=== PATIENT | male | born 1955 | race Caucasian/White ===

== ENCOUNTER 2019-08-07 18:55 | Emergency (ER) | payer MEDICARE ==
--- OUTSIDE RECORDS SUMMARY | 2019-08-07 18:59 | XMS REPORT | Summary of Care ---
:1955 Author Organization [facility] Address 1 [facility] [address] [place] [address] Care Team Providers Name Role Phone Cole Fiore Primary Care Provider Reason for Visit Reason Comments New Patient Referred by Holly Braswell Thumb Pain Right thumb pain and locking X 1 month. Right hand dominant. 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 Acetaminophen (TYLENOL Take by mouth 0 Active PO) EVERY SIX HOURS. fluticasone (FLONASE) 50 Roosevelt 1 Roosevelt in 1 Bottle 1 10/02/2017 Active MCG/ACT Nasal Suspension nose DAILY. guaiFENesin-codeine Take 10 mL by 240 mL 0 02/15/2019 Active (ROBITUSSIN AC) 100-10 mouth EVERY MG/5ML Oral Solution EIGHT HOURS NEEDED (cough). Max Daily Amount: 30 mL. Hospital, Clinic, or Other Ordered Dose Route Frequency Start Date End Date Status Facility Administered Medication methylPREDNISolone acetate 10 mg IM NOW 06/18/2019 06/18/2019 Ended (DEPO-MEDROL) injection 40 MG/MLIndications: Trigger thumb of right hand documented as of this encounter (statuses as of 06/18/2019) Active Problems Problem Noted Date Right inguinal hernia 04/11/2017 Overview: Added automatically from request for surgery [id number] Gallbladder mass 01/15/2017 Overview: Added automatically from request for surgery [id number] Arthralgia of both knees 04/15/2015 documented as of this encounter (statuses as of 06/18/2019) Immunizations Name Administration Dates Next Due Influenza (IM) Preservative Free 04/30/2017, 03/16/2016 TDAP Vaccine 10/26/2013 documented as of this encounter Social History Tobacco Use Types Packs/Day Years Used Date Never Smoker Smokeless Tobacco: Never Used Alcohol Use Drinks/Week oz/Week Comments Yes 1 Standard drinks or equivalent 1.0 drinks sparingly Sex Assigned at Date Recorded Not on file Job Start Date Occupation Industry Not on file Not on file Not on file Travel History Travel Start Travel End No recent travel history available. documented as of this encounter Last Filed Vital Signs Vital Sign Reading Time Taken Comments Blood Pressure 124/72 06/18/2019 9:47 AM EST Pulse - - Temperature - - Respiratory Rate - - Oxygen Saturation - - Inhaled Oxygen Concentration - - Weight 99.8 kg (220 lb) 06/18/2019 9:47 AM EST Height 180.3 cm (5' 11") 06/18/2019 9:47 AM EST Body Mass Index 30.68 06/18/2019 9:47 AM EST documented in this encounter Progress Notes [place] NP - 06/18/2019 10:00 AM EST HAND SURGERY Name: Rip Thompson : 1955 Date of service: 06/18/2019 Chief Complaint Patient presents with New Patient Referred by Holly Braswell Thumb Pain Right thumb pain and locking X 1 month. Right hand dominant. HPI: Rip Thompson is a 63-y.o. y/o male,without diabetes, Right hand dominant, who presents at the request of Holly Braswell for evaluation of right thumb pain and locking x 1 month. PAST MEDICALHISTORY: He has a past medical history of Adverse effect of anesthesia (12/2016), Gallbladder polyp (12/2016), Gout attack, Right inguinal hernia (12/2016), Seasonal allergies, and Wrist fracture. PAST SURGICAL HISTORY:He has a past surgical history that includes vasectomy ( 1993); pr knee scope,w/lateral release (1992); laparoscopic cholecystectomy (); and herniorrhaphy, inguinal adult (Right, 07/08/2017). MEDICATIONS: Current Outpatient Medications: Acetaminophen (TYLENOL PO), Take by mouth EVERY SIX HOURS., Disp: , Rfl : fluticasone (FLONASE) 50 MCG/ACT Nasal Suspension, Roosevelt 1 Roosevelt in nose DAILY., Disp: 1 Bottle, Rfl: 1 guaiFENesin-codeine (ROBITUSSIN AC) 100-10 MG/5ML Oral Solution, Take 10 mL by mouth EVERY EIGHT HOURS NEEDED (cough). Max Daily Amount: 30 mL., Disp: 240 mL, Rfl: 0 ibuprofen (MOTRIN) 400 MG Oral Tab, Take 400 mg by mouth EVERY SIX HOURS NEEDED for Pain., Disp: , Rfl: ALLERGIES: He has No Known Allergies. SOCIAL HISTORY: He reports that he has never smoked. He has never used smokeless tobacco. He reports current alcohol use of about 1.0 standard drinks of alcohol per week. He reports that he does not use drugs. FAMILY HISTORY: family history includes Allergies in his son; Asthma in his son ; Colon Cancer in hisother and other; Diabetes in his mother; Heart in his father. ROS: Nursing Notes: Cyndi Nathan LPN 06/18/2019 9:51 AM Signed NAME: Rip Thompson : 1955 DATE OF SERVICE: 06/18/2019 CONSTITUTIONAL: negative. HEENT: negative. EYES: negative. RESPIRATORY: negative. CARDIOVASCULAR: negative. GASTROINTESTINAL: negative. GENITOURINARY: negative. INTEGUMENT/BREAST: negative. HEMATOLOGIC/LYMPHATIC: negative. MUSCULOSKELETAL: Negative except right thumb pain and locking NEUROLOGICAL: negative. BEHAVIORAL/PSYCH: negative. ENDOCRINE: negative. ALLERGIC/IMMUNOLOGIC: negative. AUTHOR: Cyndi Nathan LPN 06/18/2019 09:50 I reviewed the above and have made changes as appropriate. Physical Exam: Vitals: BP 124/72 Ht 5' 11" (1.803 m) Wt 220 lb (99.8 kg) BMI 30.68 kg/m2 Gen: NAD, A&Ox3 Extremities: Stability, musculature, motion, and alignment are examined, and palpation is performed.The contralateral side is examined for comparison. hand exam demonstrates well-developed and symmetric upper extremities without obvious deformity. Normal rugal patterns, sweat, turgor, and temperature. Cuticles, nails, nail curvature, and pulp bulk are normal inappearance. Capillary refill is <2 seconds. The small joints of the hand are stablewithout significant subluxation, dislocations, or laxity. Gross alignment is normal. Muscle examination reveals normal muscle bulk withno notable atrophy. Sensation intact to light touch. Active triggering: rt Tenderness at A1 timoteo: rt Mass or nodule: none Full flexion and extension of all fingers unless otherwise noted. Assessment: ICD-9-CM ICD-10-CM 1. Trigger thumb of right hand 727.03 M65.311 REFER TO HAND SURGERY methylPREDNISolone acetate (DEPO-MEDROL) injection 40 MG/ML Plan & Discussion: --cortisone injection for right thumb trigger finger We discussed the basic underlying pathoanatomy of trigger fingers, as well as the treatment options,which primarily consists of cortisone injection or surgery. Splinting may be useful in some cases.Cortisone is helpful in approximately 50-70% of patients with up to 2 or 3 injections. When non- operative measures fail or the patient is either unable or unwilling to undergo an injection, surgical release of the A1 timoteo may be performed, which definitively solves the problem in nearly all cases.This patient is a candidate for injection and would like to undergo this today. We discussed the risks of cortisone injections, which include skin atrophy, depigmentation, local irritation/pain, transient increases in blood sugar, and rare reports of tendon rupture. The patient understands and agrees to undergo injection. PROCEDURE: After cleansing the skin overlying the affected A1 timoteo, a 25 gauge needle was used toinject a 1:1 mixture of 1% plain lidocaine for local anesthesia, along with approximately 10 mg of depo-medrol from a multidose vial. A Band-Aid was placed over the injection site. The patient tolerated the injection well. We discussed that the area will be numb for about 4-6 hours, and to use precautions to avoid injuries such as cuts or boyd. The day following a steroid injection, the symptoms and/or pain may be worse, but over the next few days as the steroid begins to work the symptoms should diminish. The patient understands that the injection may not work at all or that the triggering may recur. I generally wait about a month before offering further intervention, which could consist of either a second injection or proceed to surgical release of the timoteo. Follow up: 3 weeks [place]a Mills NP Hand Surgery 06/18/2019 documented in this encounter Plan of Treatment Date Type Specialty Care Team Description 07/09/2019 Office Visit Orthopedics [place] NP 1 [place] [address] [phone] Health Maintenance Due Date Last Done Comments HIV SCREENING 1968 ZOSTER IMMUNIZATION SERIES 08/21/2003 (1 of 2) DIABETES SCREENING 04/28/2018 04/28/2017, 04/28/2017, 01/15/2017, Additional history exists PNEUMOCOCCAL 65+YRS (1 of 2 2018 - PCV13) INFLUENZA VACCINE (#1) 2019 04/30/2017, 03/16/2016 DEPRESSION SCREENING 12/30/2019 12/29/2018, 12/29/2018 Colonoscopy 01/10/2020 01/09/2017, 05/26/2011 FALL RISK ASSESSMENT 02/16/2020 02/15/2019, 02/15/2019 LIPID DISORDER SCREENING 03/04/2021 03/04/2016, 10/26/2013 DTaP/Tdap/Td Vaccines (2 - 10/27/2023 10/26/2013 Tdap) HEPATITIS A IMMUNIZATION Aged Out No longer eligible SERIES based on patient's age to complete this topic HPV IMMUNIZATION SERIES Aged Out No longer eligible based on patient's age to complete this topic MENINGOCOCCAL VACCINE IMM Aged Out No longer eligible based on patient's age to complete this topic documented as of this encounter Goals Goal Patient Goal Associated Recent Patient-Stated? Author Type Problems Progress Depression Depression 5 (12/29/2018 No [place], screen (PHQ-9) 2:32 PM EDT) MD Cole total score < 5 Note: This is an individualized treatment (depression) goal for Rip Thompson: Displayed above is your goal for a depression screening (PHQ-9) score that would indicate good control of your depression. Keep a regular sleep schedule Lifestyle No Cole Fiore MD Note: This is an individualized lifestyle goal for Rip Thompson: Please maintain a regular sleep schedule. This may help with some symptoms of depression. Take all prescribed medications as directed Self-management No Cole Fiore MD Note: This is an individualized self-management goal for Rip Thompson: Please take all prescribed medications as directed. 1. Do not skip doses. If you cannot afford your medications, talk with your doctor. 2. Use a pill reminder system such as a pill box if needed. Your pharmacist can help you with this. 3. Contact your Pharmacy 5 days before your medication runs out. If you cannot take your medications for any reasons, talk with your doctor. 4. Please bring all of your medication bottles and inhalers (or a list of all your medications/inhalers) with you to every visit. Potential barriers to meeting all of your care plan goals will continue to be addressed on an ongoing basis. documented as of this encounter Implants Implanted Type Area Braid Maker Device Shelf Model / Identifier Expiration Serial / Date Lot Perfix Hernia Plug X Large - [id number] Right: [employer] 2021 [id number] / Implanted: Qty: 1 on 07/08/2017 by Devonte Day MD at [facility] Inguinal / [id number] documented as of this encounter Results Not on filedocumented in this encounter Visit Diagnoses Diagnosis Trigger thumb of right hand Trigger finger (acquired) documented in this encounter Administered Medications Medication Order MAR Action Action Date Dose Rate Site methylPREDNISolone acetate Given 06/18/2019 10:09 10 mg Tendon Sheath (DEPO-MEDROL) injection 40 AM EST MG/ML 10 mg, Intramuscular, NOW, 1 dose, Fri06/18/19 at 1020 documented in this encounter Insurance Payer Benefit Plan / Subscriber ID Effective Dates Phone Address Type Group AETNA COMMERCIAL AETNA HMO xxxxxxxx 2018-Present Aetna Guarantor Name Account Type Relation to Date of Phone Billing Patient Address Rip Thompson Personal/Family 1955 [address] (Home) [facility] [phone] [place] [phone] (Work) documented as of this encounter Advance Directives Type Date Recorded 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
--- OUTSIDE RECORDS SUMMARY | 2019-08-07 18:59 | XMS REPORT | Summary of Care ---
:1955 Author Organization [facility] Address [address] [place] [address] Care Team Providers Name Role Phone Cole Fiore Primary Care Provider Reason for Visit Reason Comments Heel Pain pt states plantar fascitis in right heel. pt was told last time that he may have to have steroid inj. he would like to discuse that. Encounter Details Date Type Department Care Team Description 07/27/2019 Office Visit [facility] Yesika Cope, Pain of right heel Practice [facility] (Primary Dx) [address] [place] [address] [place] [address] [phone] Allergies No Known Allergiesdocumented as of this encounter (statuses as of 07/27/2019) Medications Medication Sig Dispensed Refills Start Date End Date Status ibuprofen (MOTRIN) 400 Take 400 mg by 0 Active MG Oral Tab mouth EVERY SIX HOURS NEEDED for Pain. Acetaminophen (TYLENOL Take by mouth 0 Active PO) EVERY SIX HOURS. fluticasone (FLONASE) 50 Crawford 1 Crawford in 1 Bottle 1 10/02/2017 Active MCG/ACT Nasal Suspension nose DAILY. guaiFENesin-codeine Take 10 mL by 240 mL 0 02/15/2019 Active (ROBITUSSIN AC) 100-10 mouth EVERY MG/5ML Oral Solution EIGHT HOURS NEEDED (cough). Max Daily Amount: 30 mL. documented as of this encounter (statuses as of 07/27/2019) Active Problems Problem Noted Date Right inguinal hernia 04/11/2017 Overview: Added automatically from request for surgery [id number] Gallbladder mass 01/15/2017 Overview: Added automatically from request for surgery [id number] Arthralgia of both knees 04/15/2015 documented as of this encounter (statuses as of 07/27/2019) Immunizations Name Administration Dates Next Due Influenza (IM) Preservative Free 04/30/2017, 03/16/2016 TDAP Vaccine 10/26/2013 documented as of this encounter Social History Tobacco Use Types Packs/Day Years Used Date Never Smoker Smokeless Tobacco: Never Used Alcohol Use Drinks/Week oz/Week Comments Yes 1 Standard drinks or equivalent 1.0 drinks sparingly Sex Assigned at Date Recorded Not on file documented as of this encounter Last Filed Vital Signs Vital Sign Reading Time Taken Comments Blood Pressure 110/78 07/27/2019 9:52 AM EST Pulse 76 07/27/2019 9:52 AM EST Temperature 36.7 07/27/2019 9:52 AM EST C (98.1 F) Respiratory Rate - - Oxygen Saturation 96% 07/27/2019 9:52 AM EST Inhaled Oxygen Concentration - - Weight 98.4 kg (217 lb) 07/27/2019 9:52 AM EST Height 180.3 cm (5' 11") 07/27/2019 9:52 AM EST Body Mass Index 30.27 07/27/2019 9:52 AM EST documented in this encounter Patient Instructions Patient InstructionsDoYesika michelle PA-C - 07/27/2019 10:00 AM ESTOrdered xray -- will do now -- reviewed xray, small heel spur present Recommend patient call Dr. Clark's office for appointment documented in this encounter Progress Notes Yesika Pérez PA-C - 07/27/2019 10:00 AM EST PATIENT: Rip Thompson : 1955 DATE OF SERVICE: 07/27/2019 REFERRING PRACTITIONER: Self-Referred PRIMARY CARE PROVIDER: Cole Fiore CHIEF COMPLAINT: Chief Complaint Patient presents with ? Heel Pain pt states plantar fascitis in right heel. pt was told last time that he may have to have steroid inj. he would like to discuse that. Subjective HISTORY OF PRESENT ILLNESS: Rip Thompson is a 63-y.o. male who presents with right heel plantar fasciitis x 3 weeks ago Has had this before, was referred to 02/2019, exercises gave relief Has been doing rolling exercises -- no relief Taking rare ibuprofen -- no relief Wearing good support shoes Denies fever, chills, nausea, vomiting, diarrhea, chest pains, SOB Past Medical History: Diagnosis Date ? Adverse effect of anesthesia 12/2016 Prolonged sedation w/ desaturation after 12/2016 surgery. ? 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 Gout attack ? Right inguinal hernia 12/2016 ? Seasonal allergies ? Wrist fracture Past Surgical History: Procedure Laterality Date ? HERNIORRHAPHY, INGUINAL ADULT Right 07/08/2017 Procedure: HERNIORRHAPHY, INGUINAL ADULT RIGHT WITH MESH; Surgeon: Devonte Day MD; Location: [facility] MAIN OR ? 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 ? CT KNEE SCOPE, W/LATERAL RELEASE 1992 1992, 1993 ? VASECTOMY 1993 Family History Problem Relation Age of Onset ? Diabetes Mother ? Heart Father heart attack early 70 ? Allergies Son ? Asthma Son ? Colon Cancer Other ? Colon Cancer Other Current Outpatient Medications Medication Sig ? Acetaminophen (TYLENOL PO) Take by mouth EVERY SIX HOURS. ? fluticasone (FLONASE) 50 MCG/ACT Nasal Suspension Crawford 1 Crawford in nose DAILY. ? guaiFENesin-codeine (ROBITUSSIN AC) 100-10 MG/5ML Oral Solution Take 10 mL by mouth EVERY EIGHT HOURS NEEDED (cough). Max Daily Amount: 30 mL. ? ibuprofen (MOTRIN) 400 MG Oral Tab Take 400 mg by mouth EVERY SIX HOURS NEEDED for Pain. No current facility-administered medications for this visit. No Known Allergies Social History Socioeconomic History ? Marital status: Spouse name: Not on file ? Number of children: Not on file ? Years of education: Not on file ? Highest education level: Not on file Occupational History ? Not on file Social Needs ? Financial resource strain: Not on file ? Food insecurity Worry: Not on file Inability: Not on file ? Transportation needs Medical: Not on file Non-medical: Not on file Tobacco Use ? Smoking status: Never Smoker ? Smokeless tobacco: Never Used Substance and Sexual Activity ? Alcohol use: Yes Alcohol/week: 1.0 standard drinks Types: 1 Standard drinks or equivalent per week Comment: drinks sparingly ? Drug use: No ? Sexual activity: Yes Partners: Female Lifestyle ? Physical activity Days per week: Not on file Minutes per session: Not on file ? Stress: Not on file Relationships ? Social connections Talks on phone: Not on file Gets together: Not on file Attends bahai service: Not on file Active member of club or organization: Not on file Attends meetings of clubs or organizations: Not on file Relationship status: Not on file ? Intimate partner violence Fear of current or ex partner: Not on file Emotionally abused: Not on file Physically abused: Not on file Forced sexual activity: Not on file Other Topics Concern ? Back Care Not Asked ? Bike Helmet Not Asked ? Blood Transfusions Not Asked ? Caffeine Concern Not Asked ? Exercise Not Asked ? Hobby Hazards Not Asked ? International Travel Not Asked ? Service Not Asked ? Occupational Exposure Not Asked ? Seat Belt Not Asked ? Self-Exams Not Asked ? Sleep Concern Not Asked ? Special Diet Not Asked ? Stress Concern Not Asked ? Weight Concern Not Asked Social History Narrative Resides with and one of his children still at home. Has 3 children. 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 REVIEW OF SYSTEMS: Skin: negative skin lesions Eyes: negative visual blurring Ears/Nose/Throat: negative rhinorrhea or sore throat Respiratory: negative cough Cardiovascular: negative chest pain Gastrointestinal: negative abdominal pain, constipation, diarrhea, nausea or vomiting Genitourinary: negative burning on urination, dysuria Musculoskeletal: positive arthritis, right heel pain -- see hpi Neurologic: negative numbness or tingling of feet or hands Psychiatric: negative anxiety Hematologic/Lymphatic/Immunologic: positive seasonal allergies Endocrine: negative diabetes or hot flashes/sweats Objective PHYSICAL EXAMINATION: VITALS: BP 110/78 (BP Location: Right arm, Patient Position: Sitting) | Pulse 76 | Temp 98.1 F (36.7 C) | Ht 5' 11" (1.803 m) | Wt 217 lb (98.4 kg ) | SpO2 96% | BMI 30.27 kg/m Body mass index is 30.27 kg/m. General appearance - alert, mild distress, cooperative, oriented times 3 Skin - Skin color, texture, turgor normal. No rashes or lesions. Head - Normocephalic. No masses, lesions, tenderness or abnormalities Eyes - conjunctivae/corneas clear. PERRL, EOM's intact. Neck - Neck supple, FROM. No cervical or supraclavicularadenopathy. Right heel - Pain with deep palpation sole side anterior heel. No edema, erythema, bruising. FROM oftoes, ankle Lungs - Good diaphragmatic excursion. Lungs clear. Chest symmetrical. Normal breath sounds. Heart - RRR. No murmurs, clicks or gallops. No peripheral edema. . . IMPRESSION: ICD-9-CM ICD-10-CM 1. Pain of right heel 729.5 M79.671 XR CALCANEUS 2 VIEWS RIGHT (STANDARD) Plan PLAN: Ordered xray -- will do now -- reviewed xray, small heel spur present Recommend patient call Dr. Clark's office for appointment Author: Yesika Pérez PA-C 07/27/2019 09:57 documented in this encounter Plan of Treatment Name Type Priority Associated Diagnoses Date/Time XR CALCANEUS 2 VIEWS Imaging Routine Pain of right heel 07/27/2019 10:32 AM EST RIGHT (STANDARD) Name Type Priority Associated Diagnoses Order Schedule XR CALCANEUS 2 VIEWS Imaging Routine Pain of right heel Expected: 2019, RIGHT (STANDARD) Expires: 07/26/2020 Health Maintenance Due Date Last Done Comments MEDICARE ANNUAL WELLNESS 1955 VISIT HIV SCREENING 1968 ZOSTER IMMUNIZATION SERIES 08/21/2003 [...] Problems Progress Depression Depression 5 (12/29/2018 No bartolome Fiore (PHQ-9) 2:32 PM EDT) MD Cole total [...] of this encounter Implants Implanted Type Area Wellness Trainer Device Shelf Model / Identifier Expiration Serial / Date Lot Perfix Hernia Plug X Large - [id number] Right: [employer] 2021 [id number] / Implanted: Qty: 1 on 07/08/2017 by Devonte Day MD at [facility] Inguinal / [id number] documented as of this encounter Results Not on filedocumented in this encounter Visit Diagnoses Diagnosis Pain of right heel Pain in limb documented in this encounter Insurance Payer Benefit Plan / Subscriber ID Effective Dates Phone Address Type Group AETNA MEDICARE AETNA MEDICARE [id number] 2019-Present Aetna ADVANTAGE ADVANTAGE Guarantor Name Account Type Relation to Date of Phone Billing Patient Address Rip Thompson Personal/Family 1955 [address] (Home) [facility] [phone] [place] [address] (Work) documented as of this encounter Advance Directives Type Date Recorded Patient Post Acute Care Nurse Explanation Advance Directives 01/19/2017 1:39 PM HEALTH CARE PROXY
[2019-08-07 19:18] VITALS: BP 126/74
--- NOTE | 2019-08-07 20:34 | ED ---
Throat Pain/Nasal Congestion - HPI Summary HPI Summary: 63 yo WM p/w cough/sinus congestion, and post nasal drip and clear mucous with cough x 3-4 days after a kid coughed on his face during a swimming lesson - History of Current Complaint Chief Complaint: UCGeneralIllness Time Seen by Provider: 08/07/19 19:52 Hx Obtained From: Patient Severity: Moderate Associated Signs And Symptoms: Positive: Negative Cough: Productive - Allergies/Home Medications Allergies/Adverse Reactions: Allergies Allergy/AdvReac Type Severity Reaction Status Date / Time No Known Allergies Allergy Verified 11/27/12 22:13 Home Medications: Home Medications Ibuprofen [Motrin Ib] 11/29/12 [History Confirmed 11/29/12] Brompheniramine/Pseudoephed/Dm [Bromfed Dm Cough Syrup] 10 ml PO Q6HR 5 Days # 200 ml 08/07/19 [Rx] PMH/Surg Hx/FS Hx/Imm Hx Previously Healthy: Yes Endocrine/Hematology History: Denies: Hx Diabetes, Hx Thyroid Disease Cardiovascular History: Denies: Hx Hypertension Respiratory History: Denies: Hx Asthma, Hx Chronic Obstructive Pulmonary Disease (COPD) GI History: Denies: Hx Ulcer - Surgical History Surgery Procedure, Year, and Place: 1991 VASECTOMY. 1991 B/L KNEE ARTHOSCOPY Infectious Disease History: No Infectious Disease History: Denies: Hx Clostridium Difficile, Hx Hepatitis, Hx Human Immunodeficiency Virus (HIV), Hx of Known/Suspected MRSA, Hx Shingles, Hx Tuberculosis, Traveled Outside the [place] in Last 30 Days - Family History Known Family History: Positive: Non-Contributory - Social History Lives: With Family Alcohol Use: None Substance Use Type: Reports: None Smoking Status (MU): Never Smoked Tobacco Review of Systems Constitutional: Negative Eyes: Negative ENT: Negative Positive: Sore Throat Cardiovascular: Negative Respiratory: Negative Gastrointestinal: Negative Genitourinary: Negative Musculoskeletal: Negative Skin: Negative Neurological/Mental Status: Negative All Other Systems Reviewed And Are Negative: Yes Physical Exam - Summary Physical Exam Summary: Gen: NAD Eye Exam: Normal Eyes: Positive: Conjunctiva Clear ENT: nasal congestion and mild clear rhinorrhea Neck: Supple Respiratory: Lungs clear, Normal breath sounds. Cardiovascular Exam: Normal, RRR, S1, S2 Abdomen: NT/ND Musculoskeletal Exam: Normal Neurological Exam: Normal Psychological Exam: Normal Skin Exam: Normal Vital Signs On Initial Exam: Initial Vitals Temp Pulse Resp BP Pulse Ox 37.1 C 67 16 126/74 98 08/07/19 19:13 08/07/19 19:13 08/07/19 19:13 08/07/19 19:13 08/07/19 19:13 Diagnostics - Vital Signs Vital Signs Temp Pulse Resp BP Pulse Ox 08/07/19 19:13 37.1 C 67 16 126/74 98 - Laboratory Lab Statement: Any lab studies that have been ordered have been reviewed, and results considered in the medical decision making process. EENT Course/Dx - Course Assessment/Plan: rapid flu and strep NEG - Diagnoses Provider Diagnoses: URI (upper respiratory infection), Cough Discharge ED - Sign-Out/Discharge Documenting (check all that apply): Patient Departure All imaging exams completed and their final reports reviewed: No Studies - Discharge Plan Condition: Stable Disposition: HOME Prescriptions: Brompheniramine/Pseudoephed/Dm [Bromfed Dm Cough Syrup] 10 ml PO Q6HR 5 Days # 200 ml Patient Education Materials: Sinusitis (ED), Upper Respiratory Infection (ED) Referrals: Cole Fiore MD [Primary Care Provider] - Additional Instructions: Please waste picker some mucinex D over the counter and/or pseudafed for sinus decongestion - Billing Disposition and Condition Condition: STABLE Disposition: Home
[2019-08-07 20:36] LABS: Influenza A Molecular Negative (Negative); Influenza B Molecular Negative (Negative)
== END 2019-08-07 21:00 | disposition home or self-care (01) ==
LOC: UCEAST 18:55
DX: J06.9 Acute upper respiratory infection, unspecified (principal); R05 Cough
CPT/HCPCS: 87651; 99212; G0463

== ENCOUNTER 2019-11-08 14:50 | Inpatient (IN) ==
[2019-11-08] MEDS ORDERED: Heparin - STEMI 5,000 UNITS/ML 1 ml VIAL IV ONE (14:52)
[2019-11-08] MEDS ORDERED: NS 0.9% 1000 ml BAG 1,000 ML IV ONE ×2 (14:52→16:28)
[2019-11-08] MEDS ORDERED: Heparin 1,000 UNIT/ML CATH LAB 1,000 10 ml (10,000 UNITS) IV ONE (15:01)
[2019-11-08] MEDS ORDERED: nitroGLYCERIN DRIP 25,000 MCG/250 ML BTL ONE (15:02)
[2019-11-08] MEDS ORDERED: Lidocaine 1% VIAL 10 MG/ML VIAL ONE (15:02)
[2019-11-08] MEDS ORDERED: VERAPAMIL 2.5 MG/ML 2 ML VIAL ** 5 mg/2 ml ONE (15:02)
[2019-11-08] MEDS ORDERED: Heparin 2 UNITS/ML 1000 mls 2,000 ML IV ONE (15:02)
[2019-11-08] MEDS ORDERED: Midazolam 5 mg/5 ml VIAL 1 mg/ml 5 ml VIAL (5 mg) ONE (15:03)
[2019-11-08] MEDS ORDERED: fentaNYL 100 mcg/2 ml 50 MCG/ML VIAL ONE (15:03)
[2019-11-08 15:12] LABS: ABS Eosinophils 0.1 10^3/ul (0-0.6); ABS Monocytes 0.6 10^3/ul (0-0.8); Eosinophil % 1.2 %; Hematocrit 48 % (42-52); Hemoglobin 16.9 g/dL (14.0-18.0); Lymphocyte % 38.8 %; Mean Corpuscular HGB Conc 35 g/dL (31-36); Mean Corpuscular Hemoglobin 33 pg (27-31); Mean Corpuscular Volume 93 fL (80-94); Mean Platelet Volume 7.8 fL (7.4-10.4); Nucleated Red Blood Cells % 0.1; Platelet Count 170 10^3/uL (150-450); Red Blood Count 5.19 10^6 /uL (4.18-5.48); Red Cell Distribution Width 13 % (10-15); White Blood Count 7.7 10^3/uL (3.5-10.8)
[2019-11-08 15:23] LABS: ALT 18 U/L (7-52); AST 18 U/L (13-39); Albumin 4.4 g/dL (3.2-5.2); Albumin/Globulin Ratio 1.5 (1-3); Alkaline Phosphatase 87 U/L (34-104); Anion Gap 10 mmol/L (2-11); BUN/Creatinine Ratio 21.2 (8-20); Blood Urea Nitrogen 28 mg/dL (6-24); CO2 Carbon Dioxide 23 mmol/L (22-32); Calcium 10.1 mg/dL (8.6-10.3); Chloride 104 mmol/L (101-111); Creatine Kinase 81 U/L (10-223); EGFR African American 65.7 (>60); EGFR Non-African American 54.3 (>60); Globulin 2.9 g/dL (2-4); Glucose 108 mg/dL (70-100); LDL Cholesterol Direct 131 mg/dL; Sodium 137 mmol/L (135-145); Total Protein 7.3 g/dL (6.4-8.9)
[2019-11-08 15:26] LABS: Troponin I 0.04 ng/mL (<0.03)
[2019-11-08 15:28] LABS: Activated Partial Thrombo Time 28.9 seconds (26.0-38.0); INR 1.08 (0.82-1.09)
[2019-11-08] MEDS ORDERED: Ondansetron 4 mg VIAL 2 MG/ML 2 ml VIAL ONE (15:38)
[2019-11-08] MEDS ORDERED: Adenosine 3 MG/ML 2 ml VIAL (6 mg) ONE (15:44)
[2019-11-08] MEDS ORDERED: Eptifibatide IV (Load dose)(*) 2 MG/ML 10 ml VIAL ONE (15:46)
[2019-11-08] MEDS ORDERED: Eptifibatide (*) 0 ML ONE (15:46)
[2019-11-08] MEDS ORDERED: Iohexol 300 (CONTRAST) 10 ML SDV ONE (16:00)
[2019-11-08] MEDS ORDERED: Ondansetron 4 mg VIAL 2 MG/ML 2 ml VIAL IV PRN (16:28)
[2019-11-08 17:29] LABS: Creatine Kinase 1546 U/L (10-223)
[2019-11-08 17:35] LABS: CKMB ng/mL 144.1 ng/mL (0.6-6.3)
[2019-11-08 17:36] LABS: Troponin I 30.75 ng/mL (<0.03)
[2019-11-08 21:49] LABS: Potassium 3.9 mmol/L (3.5-5.0)
[2019-11-08 21:57] LABS: CKMB ng/mL > 297.0 ng/mL (0.6-6.3); Troponin I > 81.00 ng/mL (<0.03)
[2019-11-08 22:11] LABS: Creatine Kinase 2518 U/L (10-223)
[2019-11-08] MEDS ORDERED: Potassium Chlor 20 meq TAB.ER PO ONE (22:15)
[2019-11-09 04:29] LABS: ABS Eosinophils 0.1 10^3/ul (0-0.6); ABS Lymphocytes 1.6 10^3/ul (1.0-4.8); ABS Monocytes 0.8 10^3/ul (0-0.8); Eosinophil % 1.2 %; Hematocrit 45 % (42-52); Hemoglobin 15.5 g/dL (14.0-18.0); Lymphocyte % 19.1 %; Mean Corpuscular HGB Conc 35 g/dL (31-36); Mean Corpuscular Hemoglobin 33 pg (27-31); Mean Corpuscular Volume 94 fL (80-94); Mean Platelet Volume 7.8 fL (7.4-10.4); Platelet Count 146 10^3/uL (150-450); Red Blood Count 4.78 10^6 /uL (4.18-5.48); Red Cell Distribution Width 13 % (10-15); White Blood Count 8.6 10^3/uL (3.5-10.8)
[2019-11-09 04:44] LABS: ALT 49 U/L (7-52); AST 216 U/L (13-39); Albumin 3.8 g/dL (3.2-5.2); Albumin/Globulin Ratio 1.6 (1-3); Alkaline Phosphatase 71 U/L (34-104); Anion Gap 5 mmol/L (2-11); BUN/Creatinine Ratio 19.4 (8-20); Blood Urea Nitrogen 21 mg/dL (6-24); CO2 Carbon Dioxide 24 mmol/L (22-32); Calcium 8.9 mg/dL (8.6-10.3); Chloride 108 mmol/L (101-111); Cholesterol 153 mg/dL; Creatine Kinase 1724 U/L (10-223); EGFR African American 82.8 (>60); EGFR Non-African American 68.4 (>60); Globulin 2.4 g/dL (2-4); Glucose 101 mg/dL (70-100); HDL Cholesterol 26.4 mg/dL; LDL Cholesterol 98 mg/dL; Potassium 4.1 mmol/L (3.5-5.0); Sodium 137 mmol/L (135-145); Total Protein 6.2 g/dL (6.4-8.9); Triglycerides 144 mg/dL
[2019-11-09 04:49] LABS: CKMB ng/mL 250.1 ng/mL (0.6-6.3)
[2019-11-09 04:57] LABS: Troponin I > 81.00 ng/mL (<0.03)
[2019-11-09] MEDS ORDERED: Perflutren Lipid Microsphere 3 ML VIAL ONE (08:01)
[2019-11-10 06:29] LABS: Anion Gap 5 mmol/L (2-11); BUN/Creatinine Ratio 20.2 (8-20); Blood Urea Nitrogen 19 mg/dL (6-24); CO2 Carbon Dioxide 22 mmol/L (22-32); Calcium 8.2 mg/dL (8.6-10.3); Chloride 110 mmol/L (101-111); EGFR African American 97.2 (>60); EGFR Non-African American 80.3 (>60); Glucose 92 mg/dL (70-100); Potassium 3.8 mmol/L (3.5-5.0); Sodium 137 mmol/L (135-145)
[2019-11-10 06:39] LABS: Troponin I 28.54 ng/mL (<0.03)
[2019-11-11 03:52] VITALS: BP 92/53
[2019-11-11 06:18] LABS: BUN/Creatinine Ratio 20.2 (8-20); EGFR African American 86.5 (>60); EGFR Non-African American 71.5 (>60); Potassium 3.9 mmol/L (3.5-5.0)
[2019-11-11 08:45] LABS: Albumin 3.8 g/dL (3.2-5.2); Albumin/Globulin Ratio 1.6 (1-3); Globulin 2.4 g/dL (2-4); Indirect Bilirubin 1.8 mg/dL (0.3-1.0); Total Bilirubin 2.1 mg/dL (0.2-1.0); Total Protein 6.2 g/dL (6.4-8.9)
== END 2019-11-11 10:15 | disposition home or self-care (01) | DRG 247 ==
LOC: ED 14:50 → CHICARD 15:02 → ICU 16:28 → MEDTELE 11-10 09:39
PROVIDERS: ADMIT Internal Medicine Cardiovascular Disease; ATTEND Internal Medicine Cardiovascular Disease

== ENCOUNTER 2020-01-10 14:08 | Observation (INO) ==
[2020-01-10 14:40] LABS: ABS Eosinophils 0.1 10^3/ul (0-0.6); ABS Lymphocytes 1.7 10^3/ul (1.0-4.8); ABS Monocytes 0.6 10^3/ul (0-0.8); ABS Neutrophils 3.6 10^3/ul (1.5-7.7); Eosinophil % 1.6 %; Hematocrit 46 % (42-52); Hemoglobin 16.2 g/dL (14.0-18.0); Lymphocyte % 28.4 %; Mean Corpuscular HGB Conc 35 g/dL (31-36); Mean Corpuscular Hemoglobin 33 pg (27-31); Mean Corpuscular Volume 93 fL (80-94); Nucleated Red Blood Cells % 0.1; Platelet Count 149 10^3/uL (150-450); Red Blood Count 4.97 10^6 /uL (4.18-5.48); Red Cell Distribution Width 13 % (10-15)
[2020-01-10 14:56] LABS: Troponin I 0.01 ng/mL (<0.03)
[2020-01-10 15:11] LABS: Albumin 4.4 g/dL (3.2-5.2); Albumin/Globulin Ratio 1.5 (1-3); BUN/Creatinine Ratio 21.2 (8-20); Calcium 9.5 mg/dL (8.6-10.3); EGFR African American 78.6 (>60); EGFR Non-African American 64.9 (>60); Potassium 4.2 mmol/L (3.5-5.0); Total Bilirubin 2.1 mg/dL (0.2-1.0); Total Protein 7.4 g/dL (6.4-8.9)
[2020-01-10 17:43] LABS: Troponin I 0.03 ng/mL (<0.03)
[2020-01-10 20:41] LABS: Troponin I 0.03 ng/mL (<0.03)
[2020-01-11 06:49] LABS: ABS Eosinophils 0.1 10^3/ul (0-0.6); ABS Lymphocytes 1.6 10^3/ul (1.0-4.8); ABS Monocytes 0.6 10^3/ul (0-0.8); ABS Neutrophils 4.2 10^3/ul (1.5-7.7); Eosinophil % 2.1 %; Hematocrit 44 % (42-52); Hemoglobin 15.4 g/dL (14.0-18.0); Lymphocyte % 24.4 %; Mean Corpuscular HGB Conc 35 g/dL (31-36); Mean Corpuscular Hemoglobin 33 pg (27-31); Mean Corpuscular Volume 94 fL (80-94); Mean Platelet Volume 8.1 fL (7.4-10.4); Platelet Count 134 10^3/uL (150-450); Red Blood Count 4.71 10^6 /uL (4.18-5.48); Red Cell Distribution Width 13 % (10-15); White Blood Count 6.5 10^3/uL (3.5-10.8)
[2020-01-11 07:07] LABS: BUN/Creatinine Ratio 17.5 (8-20); Calcium 9.3 mg/dL (8.6-10.3); EGFR African American 77.8 (>60); EGFR Non-African American 64.3 (>60); Potassium 4.6 mmol/L (3.5-5.0)
[2020-01-11 11:29] VITALS: BP 115/54
== END 2020-01-11 13:48 | disposition home or self-care (01) ==
LOC: ED 14:08 → MEDTELE 14:08
PROVIDERS: ADMIT Internal Medicine; ATTEND Internal Medicine